=== PATIENT | female | born 1950 ===

== ENCOUNTER 2021-01-22 06:52 | Day surgery (SDC) | payer OTHER | END 2021-01-22 12:50 | disposition home or self-care (01) | LOC: AMB-ENDOS 06:52 | PROVIDERS: ATTEND Colon & Rectal Surgery | DX: D12.4 Benign neoplasm of descending colon (principal); D12.5 Benign neoplasm of sigmoid colon; K62.82 Dysplasia of anus; K64.2 Third degree hemorrhoids ==